=== PATIENT | female | born 1990 | race African-American/Black ===

== ENCOUNTER 2019-09-25 15:48 | Emergency (ER) | payer MEDICAID, OTHER ==
[~2019-09-25] VITALS: Ht 172.7 cm; Wt 77.1 kg
[2019-09-25] MEDS ORDERED: IV NORMAL SALINE 1000ML BAG 1,000 ML IV ONE (16:30)
[2019-09-25] MEDS ORDERED: ONDANSETRON PF 4 MG/2 ML VIAL. IV ONE (16:30)
[2019-09-25 16:34] LABS: BILIRUBIN,URINE SMALL (NEG); CLARITY,URINE CLEAR; NITRITE,URINE NEGATIVE (NEG); PROTEIN,URINE 30 mg/dL (NEG-TRACE)
[2019-09-25 16:38] LABS: COLOR,URINE DK YELLOW
[2019-09-25 16:39] LABS: AMPHETAMINE/METHAMPHETAMINE NEG (NEG); BARBITURATES NEG (NEG); BENZODIAZEPINES NEG (NEG); CANNABINOIDS POS (NEG); COCAINE NEG (NEG); METHADONE NEG (NEG); OPIATES NEG (NEG); PHENCYCLIDINE NEG (NEG)
[2019-09-25 16:40] LABS: BACTERIA,URINE MANY /HPF (0-FEW); RBC,URINE 0 /HPF (0-2); SQUAMOUS EPITHELIAL CELL,UR MANY /LPF
--- NOTE | 2019-09-25 17:05 | PHYS DOC ---
Past Medical History Past Medical History: Other Additional Past Medical Histor: hidradenitis suppurativa, hyperemesis gravidarum (ERON MEEKS APRN) Past Surgical History: No Surgical History (ERON MEEKS APRN) Alcohol Use: Occasionally Drug Use: None (ERON MEEKS APRN) Attending Signature I have participated in the care of this patient and I have reviewed and agree with all pertinent clinical information above including history, exam, and recommendations. (RAGHAVENDRA QUIGLEY MD) Adult General Chief Complaint Chief Complaint: NAUSEA/VOMITING/DIARRHA HPI HPI Patient is a 28 year old female with history of hidradenitis Supra currently on doxycycline since May who presents to the ED today complaining of diarrhea that began last week and nausea and vomiting that began 5 days ago. Patient reports her last menstrual cycle was around August 09, 2019. She is currently on control and concerned she could be because she is on antibiotic and control. Denies any hematemesis or melena. She is a 3 para 3. (ERON MEEKS APRN) Review of Systems Review of Systems Constitutional: Denies fever or chills [] Eyes: Denies change in visual acuity, redness, or eye pain [] HENT: Denies nasal congestion or sore throat [] Respiratory: Denies cough or shortness of breath [] Cardiovascular: No additional information not addressed in HPI [] GI: Reports abdominal cramping, nausea, vomiting, diarrhea. : Denies dysuria or hematuria [] Musculoskeletal: Denies back pain or joint pain [] Integument: Denies rash or skin lesions [] Neurologic: Denies headache, focal weakness or sensory changes [] All other systems were reviewed and found to be within normal limits, except as documented in this note. (ERON MEEKS APRN) Current Medications Current Medications Current Medications Medications (Trade) Dose Ordered Sig/Tea Start Time Stop Time Status Last Admin Dose Admin Ondansetron HCl (Zofran) 4 mg 1X ONCE 09/25/19 16:30 09/25/19 16:31 DC 09/25/19 17:05 4 MG Sodium Chloride 1,000 ml @ 1,000 mls/hr 1X ONCE 09/25/19 16:30 09/25/19 17:29 DC 09/25/19 17:06 1,000 MLS/HR (RAGHAVENDRA QUIGLEY MD) Allergies Allergies Allergies Coded Allergies Type Severity Reaction Last Updated Verified Latex, Natural Rubber Allergy Intermediate rash and blisters 09/06/15 Yes (RAGHAVENDRA QUIGLEY MD) Physical Exam Physical Exam Constitutional: Well developed, well nourished, no acute distress, non-toxic appearance. [] HENT: Normocephalic, atraumatic, bilateral external ears normal, oropharynx moist, no oral exudates, nose normal. [] Eyes: PERRLA, EOMI, conjunctiva normal, no discharge. [] Neck: Normal range of motion, no tenderness, supple, no stridor. [] Cardiovascular:Heart rate regular rhythm, no murmur [] Lungs & Thorax: Bilateral breath sounds clear to auscultation [] Abdomen: Bowel sounds normal, soft, no tenderness, no masses, no pulsatile masses. [] Skin: Warm, dry, no erythema, no rash. [] Back: No tenderness, no CVA tenderness. [] Extremities: No tenderness, no cyanosis, no clubbing, ROM intact, no edema. [] Neurologic: Alert and oriented X 3, normal motor function, normal sensory function, no focal deficits noted. [] Psychologic: Affect normal, judgement normal, mood normal. [] (ERON MEEKS APRN) Current Patient Data Vital Signs Vital Signs Date Time Temp Pulse Resp B/P (MAP) Pulse Ox O2 Delivery O2 Flow Rate FiO2 09/25/19 18:00 78 18 109/51 (70) 97 Room Air 09/25/19 16:10 98.3 98.3 (RAGHAVENDRA QUIGLEY MD) Lab Values Laboratory Tests Test 09/25/19 16:10 09/25/19 16:18 09/25/19 17:00 Urine Collection Type Unknown Urine Color Dk yellow Urine Clarity Clear Urine pH 6.0 Urine Specific Egan >=1.030 Urine Protein 30 mg/dL (NEG-TRACE) Urine Glucose (UA) Negative mg/dL (NEG) Urine Ketones (Stick) >=80 mg/dL (NEG) Urine Blood Negative (NEG) Urine Nitrite Negative (NEG) Urine Bilirubin Small (NEG) Urine Urobilinogen Dipstick 1.0 mg/dL (0.2 mg/dL) Urine Leukocyte Esterase Small (NEG) Urine RBC 0 /HPF (0-2) Urine WBC 5-10 /HPF (0-4) Urine Squamous Epithelial Cells Many /LPF Urine Bacteria Many /HPF (0-FEW) Urine Mucus Marked /LPF Urine Opiates Screen Neg (NEG) Urine Methadone Screen Neg (NEG) Urine Barbiturates Neg (NEG) Urine Phencyclidine Screen Neg (NEG) Urine Amphetamine/Methamphetamine Neg (NEG) Urine Benzodiazepines Screen Neg (NEG) Urine Cocaine Screen Neg (NEG) Urine Cannabinoids Screen Pos (NEG) Urine Ethyl Alcohol Neg (NEG) POC Urine HCG, Qualitative Hcg positive (Negative) White Blood Count 8.2 x10^3/uL (4.0-11.0) Red Blood Count 4.39 x10^6/uL (3.50-5.40) Hemoglobin 13.3 g/dL (12.0-15.5) Hematocrit 38.2 % (36.0-47.0) Mean Corpuscular Volume 87 fL (79-100) Mean Corpuscular Hemoglobin 30 pg (25-35) Mean Corpuscular Hemoglobin Concent 35 g/dL (31-37) Red Cell Distribution Width 13.7 % (11.5-14.5) Platelet Count 306 x10^3/uL (140-400) Neutrophils (%) (Auto) 66 % (31-73) Lymphocytes (%) (Auto) 25 % (24-48) Monocytes (%) (Auto) 9 % (0-9) Eosinophils (%) (Auto) 0 % (0-3) Basophils (%) (Auto) 1 % (0-3) Neutrophils # (Auto) 5.4 x10^3/uL (1.8-7.7) Lymphocytes # (Auto) 2.0 x10^3/uL (1.0-4.8) Monocytes # (Auto) 0.7 x10^3/uL (0.0-1.1) Eosinophils # (Auto) 0.0 x10^3/uL (0.0-0.7) Basophils # (Auto) 0.1 x10^3/uL (0.0-0.2) Maternal Serum HCG Beta Subunit 77616 mIU/mL (0-5) H Sodium Level 134 mmol/L (136-145) L Potassium Level 3.3 mmol/L (3.5-5.1) L Chloride Level 94 mmol/L (98-107) L Carbon Dioxide Level 25 mmol/L (21-32) Anion Gap 15 (6-14) H Blood Urea Nitrogen 10 mg/dL (7-20) Creatinine 0.7 mg/dL (0.6-1.0) Estimated GFR (Cockcroft-Gault) 120.6 BUN/Creatinine Ratio 14 (6-20) Glucose Level 84 mg/dL (70-99) Calcium Level 9.3 mg/dL (8.5-10.1) Total Bilirubin 0.6 mg/dL (0.2-1.0) Aspartate Amino Transferase (AST) 14 U/L (15-37) L Alanine Aminotransferase (ALT) 12 U/L (14-59) L Alkaline Phosphatase 45 U/L (46-116) L Total Protein 8.3 g/dL (6.4-8.2) H Albumin 4.2 g/dL (3.4-5.0) Albumin/Globulin Ratio 1.0 (1.0-1.7) Lipase 41 U/L (73-393) L Ethyl Alcohol Level < 10 mg/dL (0-10) Laboratory Tests 09/25/19 17:00 Laboratory Tests 09/25/19 17:00 (RAGHAVENDRA QUIGLEY MD) EKG EKG [] (ERON MEEKS APRN) Radiology/Procedures Radiology/Procedures []PROCEDURE: OB < 14 WKS EXAM: OBSTETRIC ULTRASOUND, <14 WEEKS. HISTORY: Nausea and pelvic pain in . COMPARISON: None. FINDINGS: Sonographic evaluation of the pelvis was performed transabdominally and transvaginally. The uterus is anteverted and measures 11.7 x 7.0 x 4.5 cm. A myometrial mass measures 2.2 x 2.1 cm and is consistent with a fibroid. There is a single intrauterine gestation measuring 6 weeks 5 days. heart rate is 128 bpm. A yolk sac is visualized. The gestational sac is regular. There is no subchorionic collection. The cervix measures 4.5 cm and is closed. Neither ovary is visualized currently. There is no significant free fluid. IMPRESSION: 1. Single intrauterine gestation measuring 6 weeks 5 days. heart rate 128 bpm. 2. 2.2 cm myometrial fibroid. 3. Neither ovary is visualized currently. Electronically signed by: David Julio MD (09/25/2019 5:08 PM) [facility] DICTATED and SIGNED BY: KRISTIAN JULIO MD DATE: 09/25/19 3368 (ERON MEEKS APRN) Course & Med Decision Making Course & Med Decision Making Pertinent Labs and Imaging studies reviewed. (See chart for details) This is a 28-year-old female patient presenting to the ED today with diarrhea that began a week ago and vomiting that began 5 days ago. Patient is currently on doxycycline and back control. She is taking doxycycline for hydradenitis Supr a. Positive urine hCG. CBC with a normal WBC, CMP with potassium of 3.3. Urine analysis is noted for dehydration, the urine is also grossly contaminated. Patient was given 1 L of IV fluid. Patient was also given Zofran. OB ultrasound noted for IUP 6 weeks 5 days. Patient is feeling better. Discharged to home. Stopped from taking doxycycline. Instructed to call the prescriber of doxycycline and let them know she is . Also stopped from taking the control. She is currently 4 para 3. OB provided for f/u\ (ERON MEEKS APRN) Dragon Disclaimer Dragon Disclaimer This electronic medical record was generated, in whole or in part, using a voice recognition dictation system. (ERON MEEKS APRN) Departure Departure Impression: Primary Impression: Additional Impressions: Nausea and vomiting during Diarrhea Disposition: 01 HOME, SELF-CARE Condition: STABLE Referrals: SUJEY BASHIR MD (PCP) follow up as soon as you can SIRISHA STORY MD follow up in one week Patient Instructions: ABCs of , Diet - Hyperemesis Gravidarum, Diet for Diarrhea, Adult Additional Instructions: You were seen in the emergency room for diarrhea with nausea and vomiting, your test was positive. Please do not take the control or doxycycline. We sent you home with nausea medicines take them as needed. Please follow-up with your own HVAC DESIGN MECHANICAL ENGINEER or the provided HVAC DESIGN MECHANICAL ENGINEER as soon as you can. Push fluids. Increase your dietary potassium intake through foods like bananas. Scripts Prochlorperazine Maleate (Compazine) 10 Mg Tablet 1 TAB PO Q6HRS for 7 Days, #28 TAB 0 Refills Prov: ERON MEEKS APRN 09/25/19 Problem Qualifiers Primary Impression: Weeks of gestation: less than 8 weeks Qualified Codes: Z3A.01 - Less than 8 weeks gestation of Additional Impressions: Diarrhea Diarrhea type: unspecified type Qualified Codes: R19.7 - Diarrhea, unspecified ERON MEEKS APRN Sep 25, 2019 17:05 RAGHAVENDRA QUIGLEY MD Sep 25, 2019 18:18
--- NOTE | 2019-09-25 17:11 | RAD ---
EXAM: OBSTETRIC ULTRASOUND, <14 WEEKS. HISTORY: Nausea and pelvic pain in . COMPARISON: None. FINDINGS: Sonographic evaluation of the pelvis was performed transabdominally and transvaginally. The uterus is anteverted and measures 11.7 x 7.0 x 4.5 cm. A myometrial mass measures 2.2 x 2.1 cm and is consistent with a fibroid. There is a single intrauterine gestation measuring 6 weeks 5 days. heart rate is 128 bpm. A yolk sac is visualized. The gestational sac is regular. There is no subchorionic collection. The cervix measures 4.5 cm and is closed. Neither ovary is visualized currently. There is no significant free fluid. IMPRESSION: 1. Single intrauterine gestation measuring 6 weeks 5 days. heart rate 128 bpm. 2. 2.2 cm myometrial fibroid. 3. Neither ovary is visualized currently. Electronically signed by: David Julio MD (09/25/2019 5:08 PM) [facility]
[2019-09-25 17:14] LABS: BASO # 0.1 x10^3/uL (0.0-0.2); BASO % 1 % (0-3); EOS % 0 % (0-3); HEMATOCRIT 38.2 % (36.0-47.0); HEMOGLOBIN 13.3 g/dL (12.0-15.5); LYMPH % 25 % (24-48); MEAN CORPUSCULAR HEMOGLOBIN 30 pg (25-35); MEAN CORPUSCULAR HGB CONC 35 g/dL (31-37); MEAN CORPUSCULAR VOLUME 87 fL (79-100); MONO # 0.7 x10^3/uL (0.0-1.1); MONO % 9 % (0-9); NEUT # 5.4 x10^3/uL (1.8-7.7); NEUT % 66 % (31-73); PLATELET COUNT 306 x10^3/uL (140-400); RED BLOOD COUNT 4.39 x10^6/uL (3.50-5.40); RED CELL DISTRIBUTION WIDTH 13.7 % (11.5-14.5); WHITE BLOOD COUNT 8.2 x10^3/uL (4.0-11.0)
[2019-09-25 17:33] LABS: CALCIUM 9.3 mg/dL (8.5-10.1); CREATININE 0.7 mg/dL (0.6-1.0); GFR 120.6; POTASSIUM 3.3 mmol/L (3.5-5.1)
[2019-09-25 17:40] LABS: ALBUMIN 4.2 g/dL (3.4-5.0); TOTAL BILIRUBIN 0.6 mg/dL (0.2-1.0); TOTAL PROTEIN 8.3 g/dL (6.4-8.2)
[2019-09-25 18:00] VITALS: BP 109/51
[2019-09-25] MEDS ORDERED: PROC10TA57 PO (18:05)
== END 2019-09-25 18:20 | disposition home or self-care (01) ==
LOC: ER 15:48
DX: O21.9 Vomiting of pregnancy, unspecified (principal); R19.7 Diarrhea, unspecified; Z3A.01 Less than 8 weeks gestation of pregnancy; Z91.040 Latex allergy status
CPT/HCPCS: 36415; 76801; 80053; 80307; 81001; 81025; 83690; 84702; 85025; 87086; 96361; 96374; 99285; G0480; J2405; J7030

== ENCOUNTER 2019-12-24 05:55 | Day surgery (SDC) | payer MEDICAID ==
[~2019-12-24 05:55] MED LIST: PROC10TA57 PO
[2019-12-24] MEDS ORDERED: PROPOFOL 20 ML IV ONE (06:37)
[2019-12-24] MEDS ORDERED: ONDANSETRON PF 4 MG/2 ML VIAL. ONE (06:37)
[2019-12-24] MEDS ORDERED: DEXAMETHASONE SOD PHOS 4 MG/ML VIAL ONE (06:37)
[2019-12-24] MEDS ORDERED: LIDOCAINE 2% PF 5 ML VIAL. ONE (06:37)
[2019-12-24] MEDS ORDERED: SUCCINYLCHOLINE 200 MG/10 ML VIAL. ONE (06:37)
[2019-12-24] MEDS ORDERED: ROCURONIUM 50 MG/5 ML VIAL. ONE (06:37)
[2019-12-24] MEDS ORDERED: ONDANSETRON PF 4 MG/2 ML VIAL. IV PRN (07:00)
[2019-12-24] MEDS ORDERED: fentaNYL PF VIAL 100 MCG/2 ML VIAL IV PRN (07:00)
[2019-12-24] MEDS ORDERED: PROCHLORPERAZINE 10 MG/2 ML VIAL. IV PRN (07:00)
[2019-12-24] MEDS ORDERED: LIDOCAINE 1% PF 2 ML VIAL. ID PRN (07:00)
[2019-12-24] MEDS ORDERED: HYDROmorphone 2 MG/ML VIAL IV PRN (07:00)
[2019-12-24] MEDS ORDERED: IV RINGERS,LACTATED 1000ML 1,000 ML IV SCH (07:00)
[2019-12-24] MEDS ORDERED: MORPHINE SULFATE 2 MG/ML VIAL. IV PRN (07:00)
[2019-12-24] MEDS ORDERED: DOXY100C2 PO (07:01)
[2019-12-24] MEDS ORDERED: NORG1TAB7 PO (07:02)
[2019-12-24 07:13] LABS: BASO # 0.1 x10^3/uL (0.0-0.2); BASO % 1 % (0-3); EOS # 0.1 x10^3/uL (0.0-0.7); EOS % 2 % (0-3); HEMATOCRIT 32.7 % (36.0-47.0); HEMOGLOBIN 10.9 g/dL (12.0-15.5); LYMPH # 2.9 x10^3/uL (1.0-4.8); LYMPH % 46 % (24-48); MEAN CORPUSCULAR HEMOGLOBIN 30 pg (25-35); MEAN CORPUSCULAR HGB CONC 34 g/dL (31-37); MEAN CORPUSCULAR VOLUME 88 fL (79-100); MONO # 0.4 x10^3/uL (0.0-1.1); MONO % 7 % (0-9); NEUT # 2.7 x10^3/uL (1.8-7.7); NEUT % 44 % (31-73); PLATELET COUNT 295 x10^3/uL (140-400); RED CELL DISTRIBUTION WIDTH 14.3 % (11.5-14.5); WHITE BLOOD COUNT 6.2 x10^3/uL (4.0-11.0)
[2019-12-24] MEDS ORDERED: fentaNYL PF VIAL 100 MCG/2 ML VIAL ONE (07:14)
[2019-12-24] MEDS ORDERED: SCOPOLAMINE 1.5MG PATCH. TD ONE (07:15)
[2019-12-24] MEDS ORDERED: BUPIVACAINE-EPI 0.25%-1:200000 MPF 30 ML VIAL. ONE (07:19)
[2019-12-24] MEDS ORDERED: FAMOTIDINE 20 MG/2 ML VIAL ONE (07:46)
[2019-12-24] MEDS ORDERED: DESFLURANE 31 TO 60 MINUTES IH ONE (07:55)
[2019-12-24] MEDS ORDERED: GLYCOPYRROLATE 1 MG/5 ML VIAL. ONE (08:02)
[2019-12-24] MEDS ORDERED: NEOSTIGMINE 10 MG/10 ML VIAL. ONE (08:02)
[2019-12-24] MEDS ORDERED: KETOROLAC 30 MG/ML VIAL. ONE (08:06)
[2019-12-24] MEDS ORDERED: OXYC1TAB15 PO (09:02)
[2019-12-24] MEDS ORDERED: IBUP-1060 PO (09:02)
[2019-12-24] MEDS: fentaNYL PF VIAL 100 MCG/2 ML VIAL IV PRN ×2 (09:13→09:26)
[2019-12-24] MEDS ORDERED: oxyCODONE/APAP 5/325 1 TAB TABLET PO ONE (09:15)
--- NOTE | 2019-12-24 09:21 | PDOC4 ---
OPERATIVE NOTE: PreOp Dx: DPS, Multiparty Post Op Dx: same Procedure: Complete salpingectomy Surgeon: Triston Dietz Anesthesia: GETA EBL: minimal Complications: None Finding: nml tube and ovaries Path: bilateral tubes MANNY DIETZ MD Dec 24, 2019 09:21
[2019-12-24 09:45] VITALS: BP 120/54
--- NOTE | 2019-12-24 15:24 | OP ---
DATE OF SURGERY: 12/24/2019 PREOPERATIVE DIAGNOSES: 1. Desires permanent sterilization. 2. Multiparity. POSTOPERATIVE DIAGNOSES: 1. Desires permanent sterilization. 2. Multiparity. PROCEDURE: Laparoscopic complete salpingectomy. SURGEON: Don Dietz MD ANESTHESIA: General endotracheal intubation. ESTIMATED BLOOD LOSS: Minimal. COMPLICATIONS: None. FINDINGS: Normal tubes and ovaries. PATHOLOGY: Bilateral tubes. DESCRIPTION OF PROCEDURE: The patient was taken to the operating room where general endotracheal intubation was obtained without difficulty. The patient was prepped and draped in normal sterile fashion. Attention was first turned to the abdomen. At first, a sponge stick was placed in the vagina for manipulation of the uterus. At that point, attention was turned to the abdomen where a 5 mm skin incision was made in the infraumbilical fold. A 5 mm trocar was then placed directly into the abdomen. Intraabdominal placement was confirmed with the laparoscope. At that point, the abdomen was insufflated to 15 mmHg. Visualization of the pelvis revealed normal anatomy. A second trocar was then placed on the left approximately two thirds between the ischial spine and umbilicus, first by making a 5 mm skin incision followed by putting the 5-mm trocar under direct visualization of the laparoscope. This was then performed on the right side, again two-thirds between the ischial spine and the umbilicus by first making a 5 mm skin incision followed by placing the trocar under direct visualization of the laparoscope. At that point, the left tube was followed all the way out to the fimbria. The fimbria was then grabbed. The tube was then undermined with the Harmonic scalpel and the tube was from the peritoneum to the level of the uterus. At that point, it was ligated off to remove the tube. At that point, the tube was then brought through the trocar intact and then sent to laboratory. This was then performed on the right where the tube was followed all the way out to the fimbria. The tube was then from the peritoneum. Once the tube was to the level of the uterus, the tube was then ligated from the uterus. This tube was brought out through the trochar as well. Good hemostasis was noted. At that point, the pelvis was irrigated with the suction financial aid advisor. Good hemostasis was noted. The laparoscope was then removed as well as the rest of the instruments. The abdomen was insufflated. At that point, the trocars were then removed. The port sites were then closed with 4-0 Monocryl in a subcuticular manner. The patient tolerated the procedure well. Sponges, laps, and needles were correct x 2. The patient was brought to the recovery room in stable condition. DON DIETZ MD DR: [email or web address] JOB#: [id number] / [id number] SIMÓN
== END 2019-12-24 10:15 | disposition home or self-care (01) ==
LOC: SURG 05:55
PROVIDERS: ATTEND Obstetrics & Gynecology
DX: Z30.2 Encounter for sterilization (principal); Z79.899 Other long term (current) drug therapy; E66.9 Obesity, unspecified; Z68.32 Body mass index [BMI] 32.0-32.9, adult; Z72.89 Other problems related to lifestyle
CPT/HCPCS: 36415; 58670; 81025; 85025; 86850; 86900; 86901; J0330; J1100; J1885; J2001; J2405; J2704; J2710; J3010; J3490; A7015; J7120